=== PATIENT | male | born 1960 | race Hispanic/Latino ===

== ENCOUNTER 2020-02-23 10:44 | Outpatient (CLI) | payer OTHER ==
--- NOTE | 2020-02-23 14:22 | Magnetic Resonance Report ---
MRI RIGHT SHOULDER WITHOUT CONTRAST INDICATION / CLINICAL INFORMATION: MAIN. Provided clinical history of right shoulder pain and decreased range of motion. TECHNIQUE: Multiplanar, multisequence MR images were obtained. No contrast used. COMPARISON: None available. FINDINGS: SUPRASPINATUS: Tendinosis with full-thickness tear of the posterior 50% fibers with minimal retractio n approximately 5 mm tendon gap on coronal imaging. Additionally, there is partial-thickness tear of the anterior 25% of bursal surface insertional fibers. No muscle atrophy. INFRASPINATUS: Tendinosis without focal tear. SUBSCAPULARIS: Tendinosis without focal tear. BICEPS TENDON, LONG HEAD: Mild intra-articular tendinosis. GLENOID LABRUM: Diffuse degeneration with degenerative tear at the superior aspect. ARTICULAR CARTILAGE: Mild chondrosis. JOINT SPACE AND CAPSULE: No significant abnormality. ACROMION and A.C. JOINT: Type I, downsloping acromion with moderate degenerative arthrosis contributi ng to mild anteroinferior encroachment. SUBACROMIAL/SUBDELTOID SPACE: Mild bursitis. BONES: Mild subcortical cystic change posterior cuff insertion. No fracture. No osseous lesion. SOFT TISSUES: No significant abnormality. ADDITIONAL FINDINGS: None. IMPRESSION: 1. Rotator cuff tendinosis with full-thickness tear at the posterior 50% of the supraspinatus fibers with minimal tendon gap and high-grade, partial-thickness tear of the anterior 25% bursal surface ins ertional fibers. 2. 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 3. Moderate degenerative acromioclavicular arthrosis contributing to mild anteroinferior encroachment on the rotator cuff. 4. Mild intra-articular biceps tendinosis. 5. Mild bursitis. Report dictated by: Herve Gregg MD Report dictated on: 02/23/2020 12:45 PM I have reviewed the images, agree with this report, and edited this report as needed. Signer Name: Bobby Zimmerman MD Signed: 02/23/2020 2:18 PM Workstation Name: [id number]
== END 2020-02-23 10:45 | disposition home or self-care (01) ==
LOC: MRI 10:44
PROVIDERS: ATTEND Internal Medicine
DX: M75.121 Complete rotator cuff tear or rupture of right shoulder, not specified as traumatic (principal); M75.51 Bursitis of right shoulder; M85.611 Other cyst of bone, right shoulder; M19.011 Primary osteoarthritis, right shoulder